=== PATIENT | male | born 1975 | race Caucasian/White ===

== ENCOUNTER 2017-06-03 12:45 | Emergency (ER) | payer MEDICAID ==
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
--- NOTE | 2017-06-04 07:18 | CR ---
Chest: Portable view of the chest was obtained. Comparison: Prior chest x-ray of 07/30/16. Heart size and mediastinum are normal. Lungs are clear. Sternotomy wires are noted. Bony structures are grossly intact. Impression: 1. Nothing acute is identified on portable chest x-ray. Diagnostic code #2
== END 2017-06-03 14:30 | disposition home or self-care (01) ==
LOC: JD.ED 12:45
DX: R07.9 Chest pain, unspecified (principal); F17.210 Nicotine dependence, cigarettes, uncomplicated
CPT/HCPCS: 36415; 71010; 71010-26; 80053; 84484; 85025; 93005; 93010; 99283-25; 99285-25

== ENCOUNTER 2017-07-01 19:05 | Emergency (ER) | payer MEDICAID ==
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
[2017-07-01 21:03] LABS: ACETAMINOPHEN 0 ug/mL (10-30)
== END 2017-07-02 08:10 | disposition home or self-care (01) ==
LOC: JD.ED 19:05
DX: F15.20 Other stimulant dependence, uncomplicated (principal); F10.10 Alcohol abuse, uncomplicated; F12.90 Cannabis use, unspecified, uncomplicated; F17.210 Nicotine dependence, cigarettes, uncomplicated
CPT/HCPCS: 36415; 80053; 80306; 84443; 85025; 93005; 99285; G0480; 99284-25

== ENCOUNTER 2017-11-16 18:09 | Emergency (ER) | payer MEDICAID, OTHER ==
[2017-11-16] MEDS ORDERED: Sodium Chloride 0.9% 10 ML Syringe FLUSH PRN (18:24)
[2017-11-16] MEDS ORDERED: Ketorolac 30 MG/ML SDV IVPUSH ONE (18:25)
[2017-11-16] MEDS ORDERED: Penicillin G Benzathine 1,200,000 Units/2 ML Syringe IM ONE (18:26)
[2017-11-16] MEDS ORDERED: Sodium Chloride 0.9% 1,000 ML IV SCH (18:30)
[2017-11-16] MEDS ORDERED: Iopamidol 612 MG/ML 100 ML Bottle IVPUSH ONE (18:55)
[2017-11-16] MEDS ORDERED: Sodium Chloride 0.9% 10 ML Syringe FLUSH ONE (18:55)
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
--- NOTE | 2017-11-16 19:42 | CT ---
CT neck Technique: Multiple axial sections were obtained from above the external auditory canals inferiorly to the lung apices. Intravenous contrast was utilized. Reconstructed coronal and sagittal images were obtained. Findings: Diffuse low density edema is identified within the right and left peritonsillar regions which is more prominent on the right side and also extends more prominently on the right side more inferiorly within the hypopharynx. This causes mass effect and narrowing of the hypopharynx. No definite drainable fluid collections are seen at this time. Uvula is markedly swollen. Epiglottis appears normal. Scattered degenerative change is noted within the cervical spine. Previous left sided craniotomy is noted. Small retention cyst is felt to be present within the left maxillary sinus which is incidental. Asymmetric soft tissue density seen within the left nasal cavity presumably due to mucosal thickening. Scattered lymph nodes are seen within the neck which are mildly prominent most likely reactive from the peritonsillar findings. Impression: 1. Prominent edema and soft tissue swelling within the peritonsillar regions as well as extending more inferiorly on the right side into the hypopharynx. Findings are compatible with prominent infection but no drainable abscess is seen at this time. 2. Slightly prominent lymph nodes most likely reactive. 3. Prominent swelling of the uvula. Diagnostic code #3
== END 2017-11-16 20:08 | disposition home or self-care (01) ==
LOC: JD.ED 18:09
DX: J02.0 Streptococcal pharyngitis (principal); F17.210 Nicotine dependence, cigarettes, uncomplicated
CPT/HCPCS: 36415; 70491; 80053; 85025; 96361; 96372; 96374; 99284; J0561; J1885; J7040; J7050; Q9967; 99283

== ENCOUNTER 2022-02-12 01:50 | Emergency (ER) | payer MEDICAID | END 2022-02-12 02:22 | LOC: JD.ED 01:50 | DX: F15.10 Other stimulant abuse, uncomplicated (principal); F17.210 Nicotine dependence, cigarettes, uncomplicated | CPT/HCPCS: 99282; 99283 ==

== ENCOUNTER 2023-06-11 22:42 | Emergency (ER) | payer BC, MEDICAID | END 2023-06-11 22:43 | LOC: JD.ED 22:42 | DX: F15.129 Other stimulant abuse with intoxication, unspecified (principal) | CPT/HCPCS: 99284 ==